=== PATIENT | female | born 1970 | race Caucasian/White ===

== ENCOUNTER 2016-07-29 10:21 | Day surgery (SDC) | payer OTHER ==
[~2016-07-29] VITALS: Ht 170.2 cm; Wt 73.7 kg
[~2016-07-29 10:21] MED LIST: ADVIL200 MG PO; BACLOFEN10 MG PO; FLEXERIL10 MG PO; MAGNESIUM400 M1 PO; MAXALT10 MG PO; NAPROSYN500 MG PO; NAPROXEN500 MG PO; NITROFURANTOIN100 M3 PO; NORCO 5/3251 TABLET PO; PONSTEL250 MG PO; SUMATRIPTAN SU100 MG PO; TOPAMAX25 MG PO; ULTRAM50 MG PO; ZOFRAN ODT4 MG PO; ZOMIG5 M1 NS
[2016-07-29 10:50] VITALS: BP 108/59
[2016-07-29 21:45] VITALS: BP 98/56
[2016-07-30 03:27] VITALS: BP 100/58
[2016-07-30 07:59] LABS: EOSINOPHIL (%) 0.1 % (0-5); HEMATOCRIT 34.7 % (36.0-46.0); IMMATURE GRANULOCYTE (%) 0.3 % (0.0-0.7); LYMPHOCYTE COUNT 1.3 K/uL (1.0-2.8); MCH 29.9 PG (29.0-34.0); MCHC 32.6 G/DL (30.0-36.0); MCV 91.8 FL (83-99); MEAN PLAT.VOLUME 10.6 uM^3 (9.5-12.4); MONOCYTE COUNT 0.6 K/uL (0-0.8); PLATELET COUNT 189 K/uL (156-360); RBC DIS.WIDTH-CV 13.1 % (11.8-14.6); RBC DIS.WIDTH-SD 43.7 % (39-53); RED BLOOD COUNT 3.78 M/uL (3.80-5.20)
[2016-07-30 08:00] VITALS: BP 99/61
[2016-07-30 08:20] VITALS: BP 99/61
[2016-07-30] MEDS ORDERED: HYDROMORPHONE HC2 MG PO (15:19)
[2016-07-30] MEDS ORDERED: MOTRIN800 MG PO (15:19)
== END 2016-07-30 16:04 | disposition home or self-care (01) ==
LOC: SDC 10:21 → 2EASTP 17:02 → 2SOUTH 17:02 → 2EASTP 21:44
PROVIDERS: Obstetrics & Gynecology
PROC: 0UT2FZZ Resection of Bilateral Ovaries, Via Natural or Artificial Opening With Percutaneous Endoscopic Assistance (ICD-10-PCS; principal; 2016-07-29)
PROC: 0T788DZ Dilation of Bilateral Ureters with Intraluminal Device, Via Natural or Artificial Opening Endoscopic (ICD-10-PCS; principal; 2016-07-29)
PROC: 0UT7FZZ Resection of Bilateral Fallopian Tubes, Via Natural or Artificial Opening With Percutaneous Endoscopic Assistance (ICD-10-PCS; principal; 2016-07-29)
PROC: 0UT9FZZ Resection of Uterus, Via Natural or Artificial Opening With Percutaneous Endoscopic Assistance (ICD-10-PCS; principal; 2016-07-29)
PROC: 0TJ98ZZ Inspection of Ureter, Via Natural or Artificial Opening Endoscopic (ICD-10-PCS; principal; 2016-07-29)
PROC: 0TNB4ZZ Release Bladder, Percutaneous Endoscopic Approach (ICD-10-PCS; principal; 2016-07-29)
PROC: 0UN94ZZ Release Uterus, Percutaneous Endoscopic Approach (ICD-10-PCS; principal; 2016-07-29)
PROC: 0UN Female Reproductive System, Release (ICD-10-PCS; principal; 2016-07-29)
PROC: [UNRECOGNIZED PROCEDURE] (principal; 2016-07-29)
PROC: 0DNE4ZZ Release Large Intestine, Percutaneous Endoscopic Approach (ICD-10-PCS; principal; 2016-07-29)
DX: N80.3 Endometriosis of pelvic peritoneum (principal); N80.0 Endometriosis of uterus; N80.1 Endometriosis of ovary; N80.2 Endometriosis of fallopian tube; N92.0 Excessive and frequent menstruation with regular cycle; N94.6 Dysmenorrhea, unspecified; N94.10 Unspecified dyspareunia; K66.0 Peritoneal adhesions (postprocedural) (postinfection); G89.29 Other chronic pain; R10.2 Pelvic and perineal pain; R10.10 Upper abdominal pain, unspecified; Z82.49 Family history of ischemic heart disease and other diseases of the circulatory system
CPT/HCPCS: 85025; 88307; C1758; G0378; J0131; J0330; J1100; J1170; J1200; J1885; J1956; J2405; J2710; J2765; J3010; J7120